=== PATIENT | female | born 1945 | race Caucasian/White ===

== ENCOUNTER 2018-10-26 08:35 | Emergency (ER) | payer BC, OTHER ==
[~2018-10-26] VITALS: Ht 149.9 cm; Wt 57.6 kg
[2018-10-26 08:39] VITALS: BP 148/66; PULSE 58; RESP 18; Ht 149.9 cm; Wt 57.6 kg
--- NOTE | 2018-10-26 08:55 | ERD ---
ER Documentation Chief Complaint Chief Complaint RIGHT FOREHEAD LACERATION S/P FALL. NO KO. NO BLOOD THINNER. BLEEDING CONTR HPI 73-year-old female who was pushing the trash cans today and she slipped. Then the trash can fell and hit her head on the right side of the forehead and now she has a laceration on the right side of her upper forehead at her hairline. Her tetanus vaccination is up-to-date. No loss of consciousness. No vomiting. She has had an facial pain but no other areas of pain. She does not take any blood thinning medications. ROS All systems reviewed and are negative except as per history of present illness. Allergies Allergies: Coded Allergies: No Known Allergy (Unverified , 10/26/18) PMhx/Soc History of Surgery: Yes (Hysterectomy) Anesthesia Reaction: No Hx Alcohol Use: No Hx Substance Use: No Hx Tobacco Use: No Smoking Status: Never smoker FmHx Family History: No diabetes Physical Exam Vitals Vital Signs Date Temp Pulse Resp B/P (MAP) Pulse Ox O2 O2 Flow FiO2 Time Delivery Rate 10/26/18 98.0 58 18 148/66 98 08:39 (93) Physical Exam INITIAL VITAL SIGNS: Reviewed by me GENERAL: Awake, alert and oriented x 4, well appearing, nontoxic, speaking in full sentences. No acute distress HEAD: Atraumatic NECK: Supple. No masses. Full range of motion. No meningismus. No midline tenderness. EYES: EOMI. PERRL. EAR: No tenderness over the mastoids bilaterally. No exudates in the canals. TMs nonerythematous. NOSE: Normal nose. THROAT: No tonilar erythema or edema. No exudates. Uvula midline. No kissing tonsils. RESPIRATORY: Clear to auscultation bilaterally. Symmetric chest wall rise. No wheezing or rales. No accessory muscle use. CV: Regular rate and rhythm. No murmurs, rubs, or gallops. Skin: Forehead laceration to right upper side extending past the hairline approximately 3 inches, small superficial right eyebrow laceration, not gaping or bleeding Neuro: M/S: Alert and oriented Face: EOMI, face and pharynx with normal sensation and function Motor: Normal strength throughout Sensation: Normal sensation throughout Speech: Normal Cerebel: Normal coordination Normal gait Normal finger to nose Results 24 hrs Current Medications Medications Dose Sig/Andria Start Time Status Last (Trade) Ordered Route PRN Stop Time Admin Dose Reason Admin Lidocaine 1 applic ONCE ONCE 10/26/18 DC (Lmx 4% Plus) TOP 09:00 10/26/18 09:01 Procedures/MDM Patient presents after mechanical fall. She does have forehead laceration. No blood thinners. CT of brain face and cervical spine ordered. CTs are negative for any acute traumatic injury. Laceration Repair by me: Anesthesia: Topical 4% LidoCream Location: Right eyebrow, scalp Tendon/Joint/Nerves: No injury Foreign body: None detected after copious irrigation and exploration Technique: Dermabond on eyebrow, ted on scalp Complexity: No subcutaneous sutures/mucosal repair/edge excision Patient's bleeding was easily controlled in the department and there is no indication of anemia. No evidence of compartment syndrome, neurologic injury, vascular injury, open joint, tendon laceration, or foreign body. Patient is appropriate for outpatient follow up. 48 hour wound check. Scar minimization instructions given. Patient counseled regarding my diagnostic impression and care plan. Prior to discharge all questions answered. Pt agrees with treatment plan and understands strict return precautions. Pt is instructed to follow up with primary care provider within 24-48 hours. Precautionary instructions provided including instructions to return to the ER if not improving or for any worsening or changing symptoms or concerns. Departure Diagnosis: Primary Impression: Scalp laceration Additional Impressions: Eyebrow laceration Head injury Condition: Stable KEELY DUONG PA-C Oct 26, 2018 08:55
[2018-10-26] MEDS ORDERED: LIDOCAINE 4% CR TOP ONE (09:00)
== END 2018-10-26 10:10 | disposition home or self-care (01) ==
LOC: FTE 08:35
DX: S01.01XA Laceration without foreign body of scalp, initial encounter (principal); S01.111A Laceration without foreign body of right eyelid and periocular area, initial encounter; S09.90XA Unspecified injury of head, initial encounter; W01.10XA Fall on same level from slipping, tripping and stumbling with subsequent striking against unspecified object, initial encounter; Y92.9 Unspecified place or not applicable
CPT/HCPCS: 12002; 12011; 70450; 70486; 72125; Z7502; Z7610

== ENCOUNTER 2018-11-01 10:23 | Emergency (ER) | payer BC ==
[~2018-11-01] VITALS: Ht 147.3 cm; Wt 58.2 kg
[2018-11-01 10:24] VITALS: Ht 147.3 cm; Wt 58.2 kg
[2018-11-01 12:10] VITALS: BP 118/61; PULSE 61; RESP 20
--- NOTE | 2018-11-01 12:15 | ERD ---
ER Documentation Chief Complaint Chief Complaint TED REMOVAL HPI 73-year-old female presenting for staple removal. Patient fell 1 week ago and had ted placed in her right upper forehead. She is been having dizzy spells at home but no vomiting and is acting normal per daughter. Walking normally. Denies other medical problems. NKDA. Surgical history denies. Social history denies ROS All systems reviewed and are negative except as per history of present illness. Allergies Allergies: Coded Allergies: No Known Allergy (Unverified , 10/26/18) PMhx/Soc History of Surgery: Yes (hysterectomy) Anesthesia Reaction: No Hx Neurological Disorder: No Hx Respiratory Disorders: No Hx Cardiac Disorders: No Hx Psychiatric Problems: No Hx Miscellaneous Medical Probl: No Hx Alcohol Use: No Hx Substance Use: No Hx Tobacco Use: No Smoking Status: Never smoker FmHx Family History: No diabetes, No coronary disease, No other Physical Exam Vitals Vital Signs Date Temp Pulse Resp B/P (MAP) Pulse Ox O2 O2 Flow FiO2 Time Delivery Rate 11/01/18 98.3 61 20 118/61 98 Room Air 12:10 (80) 11/01/18 98.0 55 24 114/62 98 10:24 (79) Physical Exam GENERAL: The patient is well-appearing, well-nourished, in no acute distress HEENT: Atraumatic. Conjunctivae are pink. Pupils equal, round, and reactive to light. There is no scleral icterus. Tympanic membranes clear bilaterally. Oropharynx clear. CHEST: Clear to auscultation bilaterally. There are no rales, wheezes or rhonchi. HEART: Regular rate and rhythm. No murmurs, clicks, rubs or gallops. NEUROLOGIC: Alert and oriented. Cranial nerves II through XII intact. Motor strength in all 4 extremities with 5 out of 5 strength. Sensation grossly intact. Normal speech and gait. SKIN: healed staple site noted to the right upper forehead with no dehiscence or surrounding erythema. Procedures/MDM DIAGNOSTIC IMAGING REPORT Patient: SHARON STUBBS : 1945 Age: 73 Sex: F MR #: [id number] DOS: 11/01/18 1036 Ordering MD: EMY SILVA PA-C Location: [facility] Room/Bed: PROCEDURE: Noncontrast CT Head. CLINICAL INDICATION: Dizziness. Status post fall. TECHNIQUE: Noncontrast CT of the head was obtained. The administered radiation dose was CTDI vol = 39.49 mGy, DLP = 634.23 mGy-cm. One or more of the following dose reduction techniques were used: Automated exposure control, Adjustment of the mA and/or kV according to patient size, or Use of iterative reconstruction technique. DICOM images are available. COMPARISON: CT HEAD 10/26/2018 FINDINGS: Evaluation is mildly limited due to motion degradation. There is minimal generalized cerebral volume loss. There is no loss of coker-white differentiation to suggest acute territorial infarction. There is no acute intracranial hemorrhage. There is no mass effect. No midline shift is identified. The orbits are within normal limits. There is pansinus mucosal thickening No destructive osseous lesion is identified. There is improved previous noted right frontal scalp subcutaneous hematoma. IMPRESSION: Evaluation is mildly limited due to motion degradation. 1. No acute intracranial hemorrhage. 2. Minimal generalized cerebral volume loss. 3. Improved previous noted right frontal scalp subcutaneous hematoma. Further findings as detailed above. ER Course: Hazel removed without complication MDM: 73-year-old female presenting for staple removal. I have low suspicion for intracranial hemorrhage or neuro deficit. I have low suspicion for abnormal sequela secondary to her recent injury. Patient is discharged and recommended to clean the area with soap and water. Patient is told symptoms change or worsen to return immediately to the ER. All questions answered at discharge Departure Diagnosis: Primary Impression: Encounter for removal of sutures Condition: Stable Patient Instructions: Suture Removal, No Complication Referrals: [facility] YOU HAVE RECEIVED A MEDICAL SCREENING EXAM AND THE RESULTS INDICATE THAT YOU DO NOT HAVE A CONDITION THAT REQUIRES URGENT TREATMENT IN THE EMERGENCY DEPARTMENT. FURTHER EVALUATION AND TREATMENT OF YOUR CONDITION CAN WAIT UNTIL YOU ARE SEEN IN YOUR DOCTORS OFFICE WITHIN THE NEXT 1-2 DAYS. IT IS YOUR RESPONSIBILITY TO MAKE AN APPOINTMENT FOR FOLOW-UP CARE. IF YOU HAVE A PRIMARY DOCTOR --you should call your primary doctor and schedule an appointment IF YOU DO NOT HAVE A PRIMARY DOCTOR YOU CAN CALL OUR PHYSICIAN REFERRAL HOTLINE AT IF YOU CAN NOT AFFORD TO SEE A PHYSICIAN YOU CAN CHOSE FROM THE FOLLOWING [facility] [address] [facility]. [facility] [address] [facility]. [facility] [address] [facility] [address] [facility] [address] [facility]. [facility] [address] Additional Instructions: FOLLOW UP WITH YOUR PRIMARY CARE PHYSICIAN TOMORROW.Return to this facility if you are not improving as expected. ESTIVEN SILVA PA-C Nov 01, 2018 12:15
== END 2018-11-01 12:11 | disposition home or self-care (01) ==
LOC: FTE 10:23
DX: Z48.00 Encounter for change or removal of nonsurgical wound dressing (principal); R42 Dizziness and giddiness
CPT/HCPCS: 70450; Z7502